=== PATIENT | male | born 1970 | race Caucasian/White ===

== ENCOUNTER 2024-10-12 09:53 | Outpatient (CLI) | payer BC, SELFPAY ==
--- NOTE | 2024-10-12 10:04 | CT_ITS ---
WS: [id number] CT NECK WITH CONTRAST HISTORY: SALIVARY GLAND SWELLING TECHNIQUE: Contiguous 2 mm axial images are performed through the neck with intravenous contrast. Sagittal and coronal reformats are also submitted. All CT scans at [facility] use at least one of these dose optimization techniques: automated exposure control; mA and/or kV adjustment per patient size (includes targeted exams where dose is matched to clinical indication); or iterative reconstruction. CONTRAST: CONTRAST: Omnipaque 350; 100 mL IV. DLP: 247.87 mGy.cm COMPARISON: Ultrasound soft tissue 09/20/2024 Palpable mass is localized along the RIGHT mandible. This is a lipomatous mass with no soft tissue enhancement. Mass is encased within the fascia surrounding the RIGHT masseter muscle. Masseter muscle is being slightly displaced by the lipoma. The lipoma measures 2.5 x 4.2 x 5.9 cm and extends along the mandible just distal to the submandibular gland. There is mass effect upon the RIGHT masseter muscle. There is no extension into the deep masseter space or the buccal space. There are a few small lymph nodes which are nonenlarged. Parotid and submandibular glands are otherwise of normal enhancement. Normal sublingual glands. Normal thyroid gland. Tongue base, larynx and hypopharynx are normal. Subglottic airway is normal. Small benign cervical chain lymph nodes. Minimal atherosclerosis through the aortic arch. Carotid arteries are patent. Distal vertebral arteries are both patent as is the basilar artery. Cervical spondylitic changes. No destructive bone changes. Small mucous retention cyst RIGHT sphenoid sinus. No air-fluid levels within the sinuses. CT/CT neck w con* [id number] IMPRESSION: 1. Palpable mass along the RIGHT mandible corresponds to a lipoma in the RIGHT masseter space with mass effect upon the masseter muscle. Lipoma measures 2.5 x 4.2 x 5.9 cm. There is no enhancing nodule or component. 2. No mass or abnormal enhancement within the submandibular or parotid glands. 3. Small cervical chain lymph nodes. No lymphadenopathy.
[2024-10-12] MEDS: iohexol 350 mg/mL 500 mL Btl (per mL) IV (10:51)
== END 2024-10-12 09:54 | disposition home or self-care (01) ==
PROVIDERS: PCP Family Medicine; Visit Provider Family Medicine
DX: K11.1 Hypertrophy of salivary gland (principal); D17.0 Benign lipomatous neoplasm of skin and subcutaneous tissue of head, face and neck
CPT/HCPCS: 70491